=== PATIENT | female | born 1995 | race Asian ===

== ENCOUNTER 2016-11-15 10:27 | Emergency (ER) | payer OTHER ==
[2016-11-15 10:43] VITALS: BP 118/79; PULSE 85; TEMP 99.4; BMI 23.9
--- NOTE | 2016-11-15 10:55 | PDOC ---
History of Present Illness - General Chief Complaint: Pain, Acute Stated Complaint: SWELLING LEFT JAW Time Seen by Provider: 11/15/16 10:49 - History of Present Illness Initial Comments: 11/15/16 12:39 Complaint: Swelling of left face History of present illness: Patient with swelling of her parotid gland for several days. Mild pain, no redness or heat, no sore throat or respiratory tract symptoms. She was seen by her primary physician, and has been on Augmentin and ibuprofen, as well as massage. Review of systems: Denies fever/chills, headache, URI symptoms, sore throat, cough, chest pain, shortness of breath, abdominal pain, nausea, vomiting, diarrhea, urinary tract symptoms, vaginal bleeding or discharge. Remainder of systems reviewed and found to be negative Past medical history: Sickle cell disease, on transfusion therapy, last transfusion one week ago. Maintained on iron chealitors. 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 Social/family history reviewed and noncontributory. She was brought up in [facility] and received all normal childhood immunizations. Physical exam: Alert and oriented well-developed well-nourished no acute distress cheerful and cooperative Afebrile, vital signs normal HEENT: The conjunctivae, ears, and throat are clear. There is no congestion. There is moderate diffuse swelling of the left parotid. There is no palpable mass or stone. The stoma is not visible. There is no erythema, warmth, or other sign of infection Neck supple without bruit mass or nodes Chest clear. Breath sounds bilaterally no wheezes rales or rhonchi CV without murmur rub or gallop Abdomen benign Skin clear, no rash, adequate turgor and mucous membranes Impression: Parotitis, probably the result of a calculus and obstruction. Plan: Symptomatic treatment with ENT follow-up if no improvement 2-3 days. Recheck immediately if signs of infection develop. Continue present medication as prescribed by primary physician. Fully ambulatory, in no significant pain or other distress upon discharge to follow up with ENT as directed. Past History - Past Medical History Allergies/Adverse Reactions: Allergies Allergy/AdvReac Type Severity Reaction Status Date / Time ceftriaxone Allergy Verified 11/15/16 10:30 vancomycin Allergy Verified 11/15/16 10:30 Home Medications: Ambulatory Orders Folic Acid 1 mg PO DAILY 09/22/14 Montelukast Na [Singulair -] 10 mg PO HS 09/22/14 Penicillin V Potassium [Pen Vee K -] 250 mg PO BID 09/22/14 Amoxicillin/Potassium Clav [Augmentin 875-125 Tablet] 1 each PO BID 11/15/16 Ibuprofen [Motrin -] 600 mg PO TID 11/15/16 Anemia: Yes (SICKLE CELL) CVA: Yes (AT 9 YRS AGE) - Surgical History Abdominal Surgery: Yes (SPLEENECTOMY) - Psycho/Social/Smoking Cessation Hx Anxiety: No Suicidal Ideation: No Smoking History: Never smoked Have you smoked in the past 12 months: No Information on smoking cessation initiated: No Hx Alcohol Use: No Drug/Substance Use Hx: No Substance Use Type: None *Physical Exam - Vital Signs Last Vital Signs Temp Pulse Resp BP Pulse Ox 99.4 F 85 16 118/79 11/15/16 10:38 11/15/16 10:38 11/15/16 10:38 11/15/16 10:38 *DC/Admit/Observation/Transfer Diagnosis at time of Disposition: Parotid gland enlargement - Discharge Dispostion Disposition: HOME Condition at time of disposition: Stable Admit: No - Patient Instructions Printed Discharge Instructions: DI for Parotitis-Adult Additional Instructions: Warm compresses, gentle massage, medication as prescribed. Recheck immediately if there is redness, heat, or other sign of developing infection Try tart hard candy such as lemon drops to stimulate saliva secretion. See ENT specialist if there is no improvement in 3-5 days.
== END 2016-11-15 11:16 | disposition home or self-care (01) ==
LOC: FER 10:27
DX: K11.1 Hypertrophy of salivary gland (principal); D57.80 Other sickle-cell disorders without crisis; Z86.73 Personal history of transient ischemic attack (TIA), and cerebral infarction without residual deficits
CPT/HCPCS: 99281-25

== ENCOUNTER 2017-12-19 16:17 | Emergency (ER) | payer OTHER ==
[2017-12-19 16:35] VITALS: BMI 23.9
[2017-12-19] MEDS ORDERED: KETOROLAC TROMETHAMINE 15 MG/ML VIAL IVPUSH ONE (17:01)
[2017-12-19] MEDS ORDERED: SODIUM CHLORIDE 0.9% 1000 ML INFUS.BAG IV ONE (17:01)
--- NOTE | 2017-12-19 17:02 | PDOC ---
History of Present Illness - History of Present Illness Initial Comments: 12/19/17 17:42 Patient is a 22 F, with PMHx of sickle cell (transfusions every 6 weeks at [facility] last transfused Nov 15), acute chest syndrome (>10 years ago last episode ), who presents today for right rib pain. Patient states that that her rib pain began spontaneously while she was sitting at her desk at work. She describes her pain as sharp, localized to the right side of her breast and chest , waxing and waning of intensity (2-8 out of 10), worse upon inspiration and expiration, and states it sometimes radiates to her back. 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 She was flu-positive for 2 weeks last month (cough, cold, fever, runny nose) . She states she had an upper respiratory infection this past week (12/13-12/16) (no fever). She currently notes a productive cough with clear-green sputum. She denies recent travel, long flights or car rides. Social Hx: Social EtOH use. Denies tobacco use. <Nory Padilla - Last Filed: 12/19/17 17:55> <Shelly Julian - Last Filed: 12/19/17 18:51> - General Chief Complaint: Pain Stated Complaint: RIGHT RIB PAIN WITH RESPIRATION AND PALPATION Time Seen by Provider: 12/19/17 16:25 Past History <Nory Padilla - Last Filed: 12/19/17 17:55> - Past Medical History Anemia: Yes (SICKLE CELL) CVA: Yes (AT 9 YRS AGE) COPD: No - Surgical History Abdominal Surgery: Yes (SPLEENECTOMY) - Suicide/Smoking/Psychosocial Hx Smoking History: Never smoked Have you smoked in the past 12 months: No Information on smoking cessation initiated: No Hx Alcohol Use: Yes (SOCIAL) Drug/Substance Use Hx: No Substance Use Type: Alcohol <Shelly Julian - Last Filed: 12/19/17 18:51> - Past Medical History Allergies/Adverse Reactions: Allergies Allergy/AdvReac Type Severity Reaction Status Date / Time ceftriaxone Allergy Severe Difficulty Verified 12/19/17 16:19 Breathing vancomycin Allergy Severe Difficulty Verified 12/19/17 16:20 Breathing Home Medications: Ambulatory Orders Deferasirox [Jadenu] 720 mg PO DAILY 12/19/17 Review of Systems - Review of Systems Comments:: 12/19/17 17:43 GENERAL/CONSTITUTIONAL: No fever or chills. No weakness. HEAD, EYES, EARS, NOSE AND THROAT: No change in vision. No ear pain or discharge. No sore throat. GASTROINTESTINAL: No nausea, vomiting, diarrhea or constipation. GENITOURINARY: No dysuria, frequency, or change in urination. CARDIOVASCULAR: +right sided chest pain. No shortness of breath. RESPIRATORY: No cough, wheezing, or hemoptysis. MUSCULOSKELETAL: +right rib pain. No joint pain. No neck or back pain. SKIN: No rash NEUROLOGIC: No headache, vertigo, loss of consciousness, or change in strength/ sensation. ENDOCRINE: No increased thirst. No abnormal weight change. HEMATOLOGIC/LYMPHATIC: No anemia, easy bleeding, or history of blood clots. ALLERGIC/IMMUNOLOGIC: No hives or skin allergy. <Nory Padilla - Last Filed: 12/19/17 17:55> *Physical Exam - Vital Signs Last Vital Signs Temp Pulse Resp BP Pulse Ox 98.7 F 91 H 20 116/67 98 12/19/17 16:18 12/19/17 16:18 12/19/17 16:18 12/19/17 16:18 12/19/17 16:18 - Physical Exam Comments: 12/19/17 17:45 GENERAL: Awake, alert, and fully oriented, in no acute distress. Speaking in full sentences. Non-toxic appearing. HEAD: No signs of trauma EYES: PERRLA, EOMI, sclera anicteric, conjunctiva clear ENT: Auricles normal inspection, hearing grossly normal, nares patent, oropharynx clear without exudates. Moist mucosa NECK: Normal ROM, supple, no lymphadenopathy, JVD, or masses LUNGS: Breath sounds equal, clear to auscultation bilaterally. No wheezes, and no crackles HEART: Holo-systolic murmor. Regular rate and rhythm, normal S1 and S2, no rubs or gallops ABDOMEN: Port on the left side of chest. Soft, nontender, normoactive bowel sounds. No guarding, no rebound. No masses EXTREMITIES: Normal range of motion, no edema. No clubbing or cyanosis. No cords, erythema, or tenderness NEUROLOGICAL: Cranial nerves II through XII grossly intact. Normal speech, normal gait SKIN: Warm, Dry, normal turgor, no rashes or lesions noted. <Nory Padilla - Last Filed: 12/19/17 17:55> - Vital Signs Last Vital Signs Temp Pulse Resp BP Pulse Ox 98.7 F 91 H 20 116/67 98 12/19/17 16:18 12/19/17 16:18 12/19/17 16:18 12/19/17 16:18 12/19/17 16:18 <Shelly Julian - Last Filed: 12/19/17 18:51> Heart Score/ECG Review - ECG Intrepretation Comment:: 12/19/17 17:55 Sinus Rhythm 76 bpm Normal axis, normal interval T wave inversions v1 and 2 , no reciprocal changes. (holo-systolic murmor) <Nory Padilla - Last Filed: 12/19/17 17:55> ED Treatment Course - LABORATORY CBC & Chemistry Diagram: 12/19/17 17:15 12/19/17 17:18 - ADDITIONAL ORDERS Additional order review: Laboratory Results 12/19/17 17:18 Urine HCG, Qual Negative 12/19/17 17:15 RBC 2.70 L MCV 92.4 MCHC 33.7 RDW 18.5 H MPV 9.2 Neutrophils % No Result Required. Lymphocytes % No Result Required. - Medications Given in the ED: ED Medications Discontinued Medications Generic Name Dose Route Start Last Admin Trade Name Freq PRN Reason Stop Dose Admin Ketorolac Tromethamine 15 mg 12/19/17 17:01 12/19/17 17:20 Toradol Injection - IVPUSH 12/19/17 17:02 15 mg ONCE ONE Administration Sodium Chloride 1,000 ml 12/19/17 17:01 12/19/17 17:21 Normal Saline - IV 12/19/17 17:02 1,000 ml ONCE ONE Administration <Nory Padilla - Last Filed: 12/19/17 17:55> - LABORATORY CBC & Chemistry Diagram: 12/19/17 17:15 12/19/17 17:18 - RADIOLOGY Radiology Studies Ordered: Category Date Time Status CHEST PA & LAT [RAD] Stat Radiology 12/19/17 16:58 Ordered <Shelly Julian - Last Filed: 12/19/17 18:51> Medical Decision Making - Medical Decision Making 12/19/17 17:13 a/p: 22yo female with cough/cp -hx of sickle cell and acute chest syndrome -no fevers -does have cough -recent flu in November then another viral URI a few days ago -nontoxic appearing -will check labs, ekg, cxr -will monitor and reassess -pt has blood transfusion for anemia from [id number] - last transfusion Nov 15 12/19/17 18:06 pt states she typically gets transfused when hgb is 7 - transfused 2 units and hgb will remain between 8-9. elevated WBC 12/19/17 18:11 pt denies recent steroid use does not normally have an elevated WBC mother on the phone - updated on the clinical status pt denies pain at this time pending cxr 12/19/17 18:51 pt will be signed out to the oncoming ED physician pending cxr and re-eval <Shelly Julian - Last Filed: 12/19/17 18:51> *DC/Admit/Observation/Transfer - Attestations Scribe Attestion: 12/19/17 17:48 Documentation prepared by Nory Padilla, acting as medical imaging director for Shelly Julian DO. <Nory Padilla - Last Filed: 12/19/17 17:55> - Attestations Physician Attestion: 12/19/17 18:13 I, Dr. Shelly Julian DO, attest that this document has been prepared under my direction and personally reviewed by me in its entirety. I further attest, that it accurately reflects all work, treatment, procedures and medical decision -making performed by me. <Shelly Julian - Last Filed: 12/19/17 18:51> Diagnosis at time of Disposition: Chest pain, Leukocytosis - Discharge Dispostion Condition at time of disposition: Stable
[2017-12-19] MEDS ORDERED: KETOROLAC TROMETHAMINE 15 MG/ML VIAL ONE (17:20)
[2017-12-19 17:29] LABS: HEMOGLOBIN 8.4 GM/dl (10.7-15.3); MEAN PLT VOLUME 9.2 fl (7.5-11.1); RDW 18.5 % (11.6-15.6)
[2017-12-19 17:34] LABS: MCH 31.1 pg (25.7-33.7); MCHC 33.7 g/dl (32.0-36.0); MEAN CELL VOLUME 92.4 fl (80-96); PLATELET COUNT 355 K/MM3 (134-434); WHITE BLOOD COUNT 25.7 K/mm3 (4.0-10.8)
[2017-12-19 17:43] LABS: ALBUMIN 4.4 g/dl (3.5-5.0); ALK PHOS 43 U/L (32-92); ANION GAP 4 (8-16); BILIRUBIN,TOTAL 2.4 mg/dl (0.2-1.0); BLOOD UREA NITROGEN 14 mg/dl (7-18); CALCIUM 8.8 mg/dl (8.4-10.2); CHLORIDE 104 mmol/L (98-107); CO2 26 mmol/L (22-28); CREATININE 0.6 mg/dl (0.6-1.3); GLUCOSE,RANDOM 93 mg/dl (74-106); POTASSIUM 3.7 mmol/L (3.5-5.1); SGOT/AST 37 U/L (10-42); SGPT/ALT 31 U/L (10-40); SODIUM 134 mmol/L (136-145); TOT PROT 8.1 g/dl (6.4-8.3)
[2017-12-19 18:26] LABS: ANISOCYTOSIS 2+; MACROCYTOSIS 1+; SICKELED CELLS FEW
[2017-12-19 18:27] LABS: PLATELET ESTIMATE ADEQUATE; TARGET CELLS 1+
[2017-12-19] MEDS ORDERED: SODIUM CHLORIDE 1,000 ML IV STA (20:25)
[2017-12-19] MEDS ORDERED: ACETAMINOPHEN 1000 MG/100 ML VIAL (NON FORMULARY) IVPB ONE (20:25)
[2017-12-19] MEDS ORDERED: ACETAMINOPHEN INJECTION 100 ML IVPB ONE (20:28)
--- NOTE | 2017-12-19 23:43 | PDOC ---
*Physical Exam - Vital Signs Last Vital Signs Temp Pulse Resp BP Pulse Ox 98.7 F 91 H 20 116/67 98 12/19/17 16:18 12/19/17 16:18 12/19/17 16:18 12/19/17 16:18 12/19/17 16:18 - Physical Exam Comments: 12/19/17 23:39 "GENERAL: Awake, alert, and fully oriented, in no acute distress HEAD: No signs of trauma EYES: PERRLA, EOMI, sclera anicteric, conjunctiva clear ENT: Auricles normal inspection, hearing grossly normal, nares patent, oropharynx clear without exudates. Moist mucosa NECK: Nontender, no stepoffs, Normal ROM, supple, no lymphadenopathy, JVD, or masses LUNGS: Breath sounds equal, clear to auscultation bilaterally. No wheezes, and no crackles HEART: Regular rate and rhythm, normal S1 and S2, no murmurs, rubs or gallops ABDOMEN: Soft, nontender, normoactive bowel sounds. No guarding, no rebound. No masses EXTREMITIES: Normal range of motion, no edema. No clubbing or cyanosis. No cords, erythema, or tenderness NEUROLOGICAL: Cranial nerves II through XII intact. 5/5 strength and sensation in all extremities, Normal speech, normal gait SKIN: Warm, Dry, normal turgor, no rashes or lesions noted. " ED Treatment Course - LABORATORY CBC & Chemistry Diagram: 12/19/17 17:15 12/19/17 17:18 - ADDITIONAL ORDERS Additional order review: Laboratory Results 12/19/17 12/19/17 17:18 17:18 Sodium 134 L Potassium 3.7 Chloride 104 Carbon Dioxide 26 Anion Gap 4 L BUN 14 Creatinine 0.6 Creat Clearance w eGFR > 60 Random Glucose 93 Calcium 8.8 Total Bilirubin 2.4 H AST 37 ALT 31 Alkaline Phosphatase 43 Total Protein 8.1 Albumin 4.4 Urine HCG, Qual Negative 12/19/17 17:15 RBC 2.70 L MCV 92.4 MCHC 33.7 RDW 18.5 H MPV 9.2 Neutrophils % No Result Required. Lymphocytes % No Result Required. - RADIOLOGY Radiology Studies Ordered: Category Date Time Status CHEST CTA [CT] Stat CT Scan 12/19/17 20:25 Completed - Medications Given in the ED: ED Medications Discontinued Medications Generic Name Dose Route Start Last Admin Trade Name Freq PRN Reason Stop Dose Admin Acetaminophen 1,000 mg 12/19/17 20:25 12/19/17 20:35 Ofirmev Injection - IVPB 12/19/17 20:26 1,000 mg ONCE ONE Administration Sodium Chloride 1,000 mls @ 1,000 mls/hr 12/19/17 20:25 12/19/17 20:36 Normal Saline - IV 12/19/17 21:24 1,000 mls/hr ASDIR STA Administration Ketorolac Tromethamine 15 mg 12/19/17 17:01 12/19/17 17:20 Toradol Injection - IVPUSH 12/19/17 17:02 15 mg ONCE ONE Administration Sodium Chloride 1,000 ml 12/19/17 17:01 12/19/17 17:21 Normal Saline - IV 12/19/17 17:02 1,000 ml ONCE ONE Administration Medical Decision Making - Medical Decision Making 12/19/17 23:39 Signout taken at 7PM. 22 F with SCD presenting with pleuritic chest pain and cough. - Labs notable for leukocytosis, no fevers noted - CXR clear Given pt's symptoms, CTA of chest was obtained and returned negative for PE. However, study was limited due to machine malfunction during study. Pt reassessed - states she feels well now with no chest pain after receiving toradol and tylenol. Exam unremarkable at this time. Vitals stable. Clinically stable for DC. I discussed the physical exam findings, ancillary test results and final diagnoses with the patient. I answered all of the patient's questions. The patient was satisfied with the care received and felt comfortable with the discharge plan and treatment plan. The patient agrees to follow up with the primary care physician within 24-72 hours. *DC/Admit/Observation/Transfer Diagnosis at time of Disposition: Chest pain, Leukocytosis - Discharge Dispostion Disposition: HOME Condition at time of disposition: Stable - Referrals - Patient Instructions Printed Discharge Instructions: DI for Atypical Chest Pain Additional Instructions: Your CT scan did not show a blood clot today. Your chest X-ray did not show any signs of pneumonia or acute chest syndrome. However, if you continue to feel ill, have worsening chest pain or shortness of breath, fevers, or any other concerning symptoms, return to the ER immediately. Your white blood cells were very elevated today. You need to have your bloodwork re-checked by your primary care doctor within 1 week to make sure it returns to normal. - Post Discharge Activity - Attestations Physician Attestion: 12/19/17 23:42 I, Dr. Yao Dorado MD, attest that this document has been prepared under my direction and personally reviewed by me in its entirety. I further attest, that it accurately reflects all work, treatment, procedures and medical decision -making performed by me.
[2017-12-19 23:51] VITALS: BP 105/63; PULSE 87; TEMP 99.3
--- NOTE | 2017-12-21 10:53 | EKG ---
Test Reason : Blood Pressure : / mmHG Vent. Rate : 076 BPM Atrial Rate : 076 BPM P-R Int : 154 ms QRS Dur : 074 ms QT Int : 394 ms P-R-T Axes : 038 062 041 degrees QTc Int : 443 ms NORMAL SINUS RHYTHM NORMAL ECG NO PREVIOUS ECGS AVAILABLE Confirmed by JIN GUZMAN MD ([id number]) on 12/21/2017 10:52:50 AM Referred By: DR ARAGON Confirmed By:JIN GUZMAN MD
== END 2017-12-19 23:50 | disposition home or self-care (01) ==
LOC: FER 16:17
PROC: 3E033NZ Introduction of Analgesics, Hypnotics, Sedatives into Peripheral Vein, Percutaneous Approach (ICD-10-PCS; principal; 2017-12-19)
PROC: 3E0333Z Introduction of Anti-inflammatory into Peripheral Vein, Percutaneous Approach (ICD-10-PCS; 2017-12-19)
PROC: 3E0337Z Introduction of Electrolytic and Water Balance Substance into Peripheral Vein, Percutaneous Approach (ICD-10-PCS; 2017-12-19)
DX: D72.829 Elevated white blood cell count, unspecified (principal); R07.89 Other chest pain; D57.1 Sickle-cell disease without crisis
CPT/HCPCS: 36415; 71046-TC-FY; 71275-TC; 80053; 84703; 85025; 85044; 93005; 99283-25

== ENCOUNTER 2017-12-21 02:49 | Observation (INO) | payer OTHER ==
[2017-12-21 02:54] VITALS: BMI 23.9
--- NOTE | 2017-12-21 03:02 | PDOC ---
History of Present Illness - General Chief Complaint: Chest Pain Stated Complaint: CHEST PAIN Time Seen by Provider: 12/21/17 03:02 History Source: Patient, Legal Guardian(s) Exam Limitations: No Limitations - History of Present Illness Initial Comments: 12/21/17 04:01 22F PMHx SSA (1 episode acute chest as a toddler, undergoes PRBC transfusion q6 months, hx aplastic anemia) with cc of fever, chest pain and SOB. Was seen and discharged from this ER yesterday where she was seen for cough, URI sxs - found to have leukocytosis but was afebrile, underwent CT chest with contrast which was negative for PE. After going home, chest pain and SOB worsened, called her mother very tachypneic and thus brought pt back to ER. +cough, no abd pain, no dysuria, no pain in joints. Reports positive flu test in November, was ill for a few days and sxs resolved. Does report flu like sxs over past 3-5 days. Past History - Past Medical History Allergies/Adverse Reactions: Allergies Allergy/AdvReac Type Severity Reaction Status Date / Time ceftriaxone Allergy Severe Difficulty Verified 12/19/17 16:19 Breathing vancomycin Allergy Severe Difficulty Verified 12/19/17 16:20 Breathing Home Medications: Ambulatory Orders Deferasirox [Jadenu] 720 mg PO DAILY 12/19/17 Anemia: Yes (SICKLE CELL) CVA: Yes (AT 9 YRS AGE) COPD: No - Surgical History Abdominal Surgery: Yes (SPLEENECTOMY) - Suicide/Smoking/Psychosocial Hx Smoking History: Unknown if ever smoked Have you smoked in the past 12 months: No Number of Cigarettes Smoked Daily: 0 Information on smoking cessation initiated: No Hx Alcohol Use: No Drug/Substance Use Hx: No Substance Use Type: None Review of Systems - Review of Systems Is the patient limited [place] proficient: No Constitutional: Yes: Chills, Fever Respiratory: Yes: Cough Cardiac (ROS): Yes: Chest Pain. No: Edema, Irregular Heart Rate, Lightheadedness, Palpitations ABD/GI: No: Abdominal Distended, Nausea, Vomiting : No: Burning, Dysuria Musculoskeletal: No: Back Pain, Muscle Pain Neurological: No: Headache, Numbness, Paresthesia, Weakness *Physical Exam - Vital Signs Last Vital Signs Temp Pulse Resp BP Pulse Ox 102.3 F H 114 H 15 127/73 95 12/21/17 02:51 12/21/17 02:51 12/21/17 02:51 12/21/17 02:51 12/21/17 02:51 - Physical Exam General Appearance: Yes: Nourished, Appropriately Dressed HEENT: positive: Normal ENT Inspection, Symmetrical, Nasal Congestion Neck: negative: Tender, Trachea midline Respiratory/Chest: positive: Lungs Clear, Normal Breath Sounds, Rapid RR. negative: Respiratory Distress, Accessory Muscle Use, Crackles, Rales, Rhonchi, Stridor, Wheezing Cardiovascular: positive: Regular Rhythm, Regular Rate, S1, S2, Systolic Murmur. negative: Edema, Irregularly Irregular, Irregular Gastrointestinal/Abdominal: positive: Normal Bowel Sounds, Soft. negative: Tender, Increased Bowel Sounds, Decreased BS, Distended, Guarding, Rebound, Tenderness Lymphatic: negative: Tenderness Musculoskeletal: positive: Normal Inspection. negative: CVA Tenderness Integumentary: positive: Dry, Warm Neurologic: negative: sanitation technician II-XII NML intact, Fully Oriented, Alert, Normal Mood/ Affect, Normal Response, Motor Strength 03/10 ED Treatment Course - LABORATORY CBC & Chemistry Diagram: 12/21/17 03:15 12/21/17 03:15 Medical Decision Making - Medical Decision Making 12/21/17 04:14 Pt with sickle cell anemia presenting with fever, tachycardia, SOB, chest pain. Ddx includes pna, acute chest syndrome, influenza. - labs including bld cx, lactate - CXR - UA - toradol, IVF - reassess, likely admission 12/21/17 05:34 Labs, CXR reviewed. Laboratory Tests 12/19/17 12/21/17 17:15 03:15 WBC 25.7 H 20.7 H Hgb 8.4 L 6.8 L* Hct 25.0 L 20.3 L Hct has dropped from 25 to 20.3 over past 32hrs. Pt denies vaginal bleeding, dark stools. Likely a result of hemolytic crisis. Still unclear what source of fever is, flu swab is pending. Will admit for PRBC transfusion, symptomatic anemia and to further workup fever of unknown origin. 12/21/17 06:07 Discussed case with SELVIN Villa. Will admit for blood transfusion, workup of fever. 12/21/17 06:15 Mother, Shweta Houston - [phone] *DC/Admit/Observation/Transfer Diagnosis at time of Disposition: Symptomatic anemia, Fever - Discharge Dispostion Condition at time of disposition: Fair Admit: Yes - Referrals - Patient Instructions - Post Discharge Activity
[2017-12-21] MEDS ORDERED: KETOROLAC TROMETHAMINE 30 MG/1 ML VIAL IVPUSH ONE (03:05)
[2017-12-21] MEDS ORDERED: SODIUM CHLORIDE 1,000 ML IV STA (03:05)
[2017-12-21] MEDS ORDERED: KETOROLAC TROMETHAMINE 30 MG/1 ML VIAL ONE (03:53)
[2017-12-21 04:26] LABS: BASO % 0.3 % (0-2.0); EOS % 0.5 % (0-4.5); HEMATOCRIT 20.3 % (32.4-45.2); LYMPH % 6.6 % (8-40); MCHC 33.4 g/dl (32.0-36.0); MEAN PLT VOLUME 9.9 fl (7.5-11.1); MONO % 15.8 % (3.8-10.2); NEUT % 76.8 % (42.8-82.8); PLATELET COUNT 311 K/MM3 (134-434); RBC 2.18 M/mm3 (3.60-5.2); RDW 19.7 % (11.6-15.6); WHITE BLOOD COUNT 20.7 K/mm3 (4.0-10.0)
[2017-12-21 04:28] LABS: VENOUS PC02 45.7 mmHg (38-52); VENOUS PH 7.38 (7.32-7.42); VENOUS PO2 22.2 mmHg (28-48)
[2017-12-21 04:29] LABS: HEMOGLOBIN 6.8 GM/dL (10.7-15.3)
[2017-12-21 04:53] LABS: N-TERMINAL BNP 235.98 pg/ml (5-125)
[2017-12-21 04:55] LABS: ALBUMIN 4.1 g/dl (3.4-5.0); ALK PHOS 50 U/L (45-117); ANION GAP 6 (8-16); BILIRUBIN,TOTAL 2.4 mg/dL (0.2-1.0); BLOOD UREA NITROGEN 9 mg/dL (7-18); CALCIUM 8.1 mg/dL (8.5-10.1); CHLORIDE 108 mmol/L (98-107); CO2 26 mmol/L (21-32); CREATININE 0.7 mg/dL (0.55-1.02); GLUCOSE,RANDOM 84 mg/dL (74-106); SGOT/AST 39 U/L (15-37); SGPT/ALT 45 U/L (12-78); SODIUM 140 mmol/L (136-145); TOT PROT 7.8 g/dl (6.4-8.2)
[2017-12-21] MEDS: SODIUM CHLORIDE 1,000 ML IV SCH (07:10)
--- NOTE | 2017-12-21 08:29 | HP ---
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 Patient receives blood transfusion every 3 months at [facility], her last transfusion was 11/15/17. patient is currently being followed by director of partnerships, Dr Carvajal at [facility]. Patient reports recently being diagnosed with the flu on 11/18/17, she completed a five day course of tamiflu. Patient reports the fever and bodyaches resolved, however , she reports ongoing cough for the past month. Yesterday, 12/20/17, she developed dyspnea upon exertion with chest pain and sought evaluation in the emergency department, patient was afebrile at the time and was discharged from the emergency department. However, upon returning home she developed worsening of chest pain with dyspnea upon exertion and fever and returned to the emergency department for further managment. ER course was notable for: (1) wbc 20.07 hgb 6.8 (2) oral temp 102.3 (3)cta of chest: no obvious pulmonary embolism. 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) Smoking: none Alcohol:social Drugs: none Family History: mother: breast cancer survivor father: sickle cell trait alive and well brother: alive and well no medical history Allergies ceftriaxone Allergy (Severe, Verified 12/19/17 16:19) Difficulty Breathing vancomycin Allergy (Severe, Verified 12/19/17 16:20) Difficulty Breathing HOME MEDICATIONS: Home Medications Medication Instructions Recorded Deferasirox [Jadenu] 720 mg PO DAILY 12/19/17 REVIEW OF SYSTEMS CONSTITUTIONAL: Present: fever, Absent: chills, diaphoresis, generalized weakness, malaise, loss of appetite, weight change HEENT: Absent: rhinorrhea, nasal congestion, throat pain, throat swelling, difficulty swallowing, mouth swelling, ear pain, eye pain, visual changes CARDIOVASCULAR: Present: chest pain Absent: syncope, palpitations, irregular heart rate, lightheadedness, peripheral edema RESPIRATORY: Absent: cough, shortness of breath, dyspnea with exertion, orthopnea, wheezing, stridor, hemoptysis GASTROINTESTINAL: Absent: abdominal pain, abdominal distension, nausea, vomiting, diarrhea, constipation, melena, hematochezia GENITOURINARY: Absent: dysuria, frequency, urgency, hesitancy, hematuria, flank pain, genital pain MUSCULOSKELETAL: Absent: myalgia, arthralgia, joint swelling, back pain, neck pain SKIN: Absent: rash, itching, pallor HEMATOLOGIC/IMMUNOLOGIC: Absent: easy bleeding, easy bruising, lymphadenopathy, frequent infections ENDOCRINE: Absent: unexplained weight gain, unexplained weight loss, heat intolerance, cold intolerance NEUROLOGIC: Absent: headache, focal weakness or paresthesias, dizziness, unsteady gait, seizure, mental status changes, bladder or bowel incontinence PSYCHIATRIC: Absent: anxiety, depression, suicidal or homicidal ideation, hallucinations. PHYSICAL EXAMINATION Vital Signs - 24 hr 12/21/17 12/21/17 12/21/17 02:51 03:24 05:55 Temperature 102.3 F H 99.1 F Pulse Rate 114 H 114 H Pulse Rate [ 89 Right Radial] Respiratory 15 15 Rate Blood Pressure 127/73 Blood Pressure 99/51 [Right Arm] O2 Sat by Pulse 95 95 96 Oximetry (%) GENERAL: Awake, alert, and fully oriented, in no acute distress. HEAD: Normal with no signs of trauma. EYES: Pupils equal, round and reactive to light, extraocular movements intact, sclera anicteric, conjunctiva clear. No lid lag. EARS, NOSE, THROAT: Ears normal, nares patent, oropharynx clear without exudates. Moist mucous membranes. NECK: Normal range of motion, supple without lymphadenopathy, JVD, or masses. LUNGS: Breath sounds equal, clear to auscultation bilaterally. No wheezes, and no crackles. No accessory muscle use. HEART: Regular rate and rhythm, normal S1 and S2, 2/6 systolic ejection murmur, rub or gallop. ABDOMEN: Soft, nontender, not distended, normoactive bowel sounds, no guarding, no rebound, no masses. No hepatomegaly or splenomegaly. MUSCULOSKELETAL: Normal range of motion at all joints. No bony deformities or tenderness. No CVA tenderness. UPPER EXTREMITIES: 2+ pulses, warm, well-perfused. No cyanosis. No clubbing. No peripheral edema. LOWER EXTREMITIES: 2+ pulses, warm, well-perfused. No calf tenderness. No peripheral edema. NEUROLOGICAL: Cranial nerves II-XII intact. Normal speech. Normal gait. PSYCHIATRIC: Cooperative. Good eye contact. Appropriate mood and affect. SKIN: Warm, dry, normal turgor, no rashes or lesions noted, normal capillary refill. Laboratory Results - last 24 hr 12/21/17 12/21/17 12/21/17 03:15 03:15 03:15 WBC 20.7 H RBC 2.18 L Hgb 6.8 L* Hct 20.3 L MCV 93.0 MCH 31.0 MCHC 33.4 RDW 19.7 H Plt Count 311 MPV 9.9 Neutrophils % 76.8 Lymphocytes % 6.6 L Monocytes % 15.8 H Eosinophils % 0.5 Basophils % 0.3 Retic Count VBG pH 7.38 POC VBG pCO2 45.7 POC VBG pO2 22.2 L Mixed VBG HCO3 26.4 H Sodium 140 Potassium 4.0 Chloride 108 H Carbon Dioxide 26 Anion Gap 6 L BUN 9 Creatinine 0.7 Creat Clearance w eGFR > 60 Random Glucose 84 Lactic Acid Calcium 8.1 L Total Bilirubin 2.4 H AST 39 H ALT 45 Alkaline Phosphatase 50 Creatine Kinase Troponin I B-Natriuretic Peptide Total Protein 7.8 Albumin 4.1 Beta HCG, Quant Urine HCG, Qual Anti-A Titer Blood Type Antibody Screen Antigen Identification Crossmatch 12/21/17 12/21/17 12/21/17 03:15 03:15 03:15 WBC RBC Hgb Hct MCV MCH MCHC RDW Plt Count MPV Neutrophils % Lymphocytes % Monocytes % Eosinophils % Basophils % Retic Count VBG pH POC VBG pCO2 POC VBG pO2 Mixed VBG HCO3 Sodium Potassium Chloride Carbon Dioxide Anion Gap BUN Creatinine Creat Clearance w eGFR Random Glucose Lactic Acid 0.9 Calcium Total Bilirubin AST ALT Alkaline Phosphatase Creatine Kinase Troponin I Cancelled B-Natriuretic Peptide 235.98 H Total Protein Albumin Beta HCG, Quant < 1.0 Urine HCG, Qual Anti-A Titer Blood Type Antibody Screen Antigen Identification Crossmatch 12/21/17 12/21/17 12/21/17 03:15 03:15 03:27 WBC RBC Hgb Hct MCV MCH MCHC RDW Plt Count MPV Neutrophils % Lymphocytes % Monocytes % Eosinophils % Basophils % Retic Count VBG pH POC VBG pCO2 POC VBG pO2 Mixed VBG HCO3 Sodium Potassium Chloride Carbon Dioxide Anion Gap BUN Creatinine Creat Clearance w eGFR Random Glucose Lactic Acid Calcium Total Bilirubin AST ALT Alkaline Phosphatase Creatine Kinase Cancelled 72 Troponin I < 0.02 B-Natriuretic Peptide Total Protein Albumin Beta HCG, Quant Urine HCG, Qual Negative Anti-A Titer Blood Type Antibody Screen Antigen Identification Crossmatch 12/21/17 12/21/17 12/21/17 04:46 05:30 05:30 WBC RBC Hgb Hct MCV MCH MCHC RDW Plt Count MPV Neutrophils % Lymphocytes % Monocytes % Eosinophils % Basophils % Retic Count 6.23 H VBG pH POC VBG pCO2 POC VBG pO2 Mixed VBG HCO3 Sodium Potassium Chloride Carbon Dioxide Anion Gap BUN Creatinine Creat Clearance w eGFR Random Glucose Lactic Acid Calcium Total Bilirubin AST ALT Alkaline Phosphatase Creatine Kinase Troponin I B-Natriuretic Peptide Total Protein Albumin Beta HCG, Quant Urine HCG, Qual Anti-A Titer Cancelled Blood Type A POSITIVE Cancelled Antibody Screen Negative Cancelled Antigen Identification Crossmatch See Detail 12/21/17 12/21/17 12/21/17 05:30 08:13 08:13 WBC RBC Hgb Hct MCV MCH MCHC RDW Plt Count MPV Neutrophils % Lymphocytes % Monocytes % Eosinophils % Basophils % Retic Count VBG pH POC VBG pCO2 POC VBG pO2 Mixed VBG HCO3 Sodium Potassium Chloride Carbon Dioxide Anion Gap BUN Creatinine Creat Clearance w eGFR Random Glucose Lactic Acid Calcium Total Bilirubin AST ALT Alkaline Phosphatase Creatine Kinase Troponin I B-Natriuretic Peptide Total Protein Albumin Beta HCG, Quant Urine HCG, Qual Anti-A Titer Blood Type A POSITIVE Antibody Screen Antigen Identification C Antigen - NEGATIVE K Antigen - NEGATIVE Crossmatch 12/21/17 12/21/17 08:13 08:19 WBC RBC Hgb Hct MCV MCH MCHC RDW Plt Count MPV Neutrophils % Lymphocytes % Monocytes % Eosinophils % Basophils % Retic Count VBG pH POC VBG pCO2 POC VBG pO2 Mixed VBG HCO3 Sodium Potassium Chloride Carbon Dioxide Anion Gap BUN Creatinine Creat Clearance w eGFR Random Glucose Lactic Acid Calcium Total Bilirubin AST ALT Alkaline Phosphatase Creatine Kinase Troponin I B-Natriuretic Peptide Total Protein Albumin Beta HCG, Quant Urine HCG, Qual Anti-A Titer Blood Type Antibody Screen Antigen Identification E Antigen - NEGATIVE c Antigen - POSITIVE Crossmatch ASSESSMENT/PLAN: f/e/n - regular diet - replete lytes prn ppx - no chemical AC due to severe anemia, mechanical ac only - scd - oob Problem List - Problem (1) Sickle cell crisis Assessment/Plan: - continue ivf, supplemental O2 and prn pain medication - will contact patient's private director of partnerships, Dr [facility]al at [facility] - appreciate hematology input Code(s): D57.00 - HB-SS DISEASE WITH CRISIS, UNSPECIFIED (2) Fever Assessment/Plan: - pending urine and blood cultures - monitor wbc and fever curve - start empiric levaquin Code(s): R50.9 - FEVER, UNSPECIFIED (3) Symptomatic anemia Assessment/Plan: - hgb 6.8 baseline 8.4 as per mother, last transfusion was 11/15/17, patient received 2 units of prbc, pending 2 units of prbc today - repeat hgb at 1800 Code(s): D64.9 - ANEMIA, UNSPECIFIED Visit type - Emergency Visit Emergency Visit: Yes Care time: The patient presented to the Emergency Department on the above date and was hospitalized for further evaluation of their emergent condition. - New Patient This patient is new to me today: Yes Date on this admission: 12/21/17 - Critical Care Critical Care patient: No
[2017-12-21] MEDS ORDERED: ACETAMINOPHEN 1000 MG/100 ML VIAL (NON FORMULARY) IVPB ONE (08:45)
[2017-12-21 08:59] LABS: URINE APPEARANCE Clear; URINE BILIRUBIN Negative (NEGATIVE); URINE BLOOD Negative (NEGATIVE); URINE GLUCOSE (UA) Negative (NEGATIVE); URINE KETONE Negative (NEGATIVE); URINE LEUK ESTERASE Negative (NEGATIVE); URINE NITRITE Negative (NEGATIVE); URINE PROTEIN Negative (NEGATIVE)
[2017-12-21 09:02] LABS: URINE COLOR YELLOW
[2017-12-21] MEDS ORDERED: ACETAMINOPHEN INJECTION 100 ML IVPB ONE (09:27)
[2017-12-21] MEDS ORDERED: diphenhydrAMINE HCL 25 MG CAPSULE (FP) PO ONE ×2 (09:35→09:38)
--- NOTE | 2017-12-21 10:59 | EKG ---
Test Reason : Blood Pressure : / mmHG Vent. Rate : 077 BPM Atrial Rate : 077 BPM P-R Int : 162 ms QRS Dur : 072 ms QT Int : 372 ms P-R-T Axes : 031 058 046 degrees QTc Int : 420 ms NORMAL SINUS RHYTHM NORMAL ECG WHEN COMPARED WITH ECG OF 19-DEC-2017 17:35, NO SIGNIFICANT CHANGE WAS FOUND Confirmed by JIN GUZMAN MD ([id number]) on 12/21/2017 10:59:10 AM Referred By: MD ADORNO Confirmed By:JIN GUZMAN MD
[2017-12-21 11:14] LABS: ACTIVATED PTT 35.8 SECONDS (26.9-34.4); INR 1.27 (0.82-1.09); PROTHROMBIN TIME (PATIENT) 14.3 SEC (9.98-11.88)
[2017-12-21] MEDS: ACETAMINOPHEN 325 MG TABLET (FP) PO PRN ×2 (16:12→21:14)
[2017-12-21 23:27] LABS: HEMATOCRIT 26.2 % (32.4-45.2); MCH 31.5 pg (25.7-33.7); MCHC 34.4 g/dl (32.0-36.0); MEAN CELL VOLUME 91.7 fl (80-96); MEAN PLT VOLUME 9.6 fl (7.5-11.1); PLATELET COUNT 329 K/MM3 (134-434); RBC 2.86 M/mm3 (3.60-5.2); RDW 18.8 % (11.6-15.6); WHITE BLOOD COUNT 26.2 K/mm3 (4.0-10.8)
[2017-12-21 23:41] LABS: PLATELET ESTIMATE ADEQUATE
[2017-12-22] MEDS: ACETAMINOPHEN 325 MG TABLET (FP) PO PRN ×3 (02:25→22:23)
[2017-12-22] MEDS ORDERED: IBUPROFEN 600 MG TABLET (FP) PO ONE (03:35)
--- NOTE | 2017-12-22 03:38 | HOSP ---
Subjective - Review of Symptoms Events since last encounter: pt c/o right sided pleuritic chest pain. Mother very concerned that pain is worsening despite transfusion. Pt reports that it hurts when she takes a deep breath and therefore has not been doing same. Physical Examination Vital Signs: Vital Signs Temperature 100.8 F H 12/22/17 02:07 Pulse Rate 95 H 12/22/17 02:07 Respiratory Rate 18 12/22/17 02:07 Blood Pressure 126/67 12/22/17 02:07 O2 Sat by Pulse Oximetry (%) 97 12/21/17 20:00 Constitutional: Yes: Calm Cardiovascular: Yes: Regular Rate and Rhythm, S1 Respiratory: Yes: CTA Bilaterally, Other (poor inspiratory effort) Gastrointestinal: Yes: Normal Bowel Sounds, Soft Musculoskeletal: Yes: Other (pain on palpation right chest 3rd, 4th intercostal space area near sternal border. No pain on palpation of port area.) Labs: CBC, BMP 12/21/17 23:00 12/21/17 03:15 Hospitalist Encounter Assessment: chest pain likely costochondritis - ibuprofen 600mg - encouraged to deep breathe, given incentive spirometer, advised to use 20 times per hour while awake. - consider CT chest or xray in am - will discuss with primary SECTION PLOTTER OPERATOR in am.
[2017-12-22] MEDS: SODIUM CHLORIDE 1,000 ML IV SCH (08:01)
--- NOTE | 2017-12-22 08:27 | PN ---
Physical Exam: SUBJECTIVE: Patient seen and examined, reports substernal pain upon palpation, denies any shortness of breath. OBJECTIVE:Patient is a 22 y/o female with a past medical history of sickle cell disease and cva ( @ 9y/o). patient was admitted from the emergency department for emergent condition. Vital Signs Period Temp Pulse Resp BP Sys/Valerio Pulse Ox Last 24 Hr 98.4 F-100.8 F 79-95 17-18 97-126/54-69 95-99 GENERAL: The patient is awake, alert, and fully oriented, in no acute distress. HEAD: Normal with no signs of trauma. EYES: PERRL, extraocular movements intact, sclera anicteric, conjunctiva clear. No ptosis. ENT: Ears normal, nares patent, oropharynx clear without exudates, moist mucous membranes. NECK: Trachea midline, full range of motion, supple. LUNGS: Breath sounds equal, clear to auscultation bilaterally, no wheezes, no crackles, no accessory muscle use. HEART: Regular rate and rhythm, S1, S2, 2/6 systolic injection murmur, no rub or gallop. ABDOMEN: Soft, nontender, nondistended, normoactive bowel sounds, no guarding, no rebound, no hepatosplenomegaly, no masses. EXTREMITIES: 2+ pulses, warm, well-perfused, no edema. NEUROLOGICAL: Cranial nerves II through XII grossly intact. Normal speech, gait not observed. PSYCH: Normal mood, normal affect. SKIN: multiple tattoos, right port a cath, no induration, no erythema noted, no sq emphysema, Warm, dry, normal turgor, no rashes or lesions noted Laboratory Results - last 24 hr 12/21/17 12/21/17 12/21/17 05:30 05:30 08:48 WBC RBC Hgb Hct MCV MCH MCHC RDW Plt Count MPV Neutrophils % Neutrophils % (Manual) Band Neutrophils % Lymphocytes % Lymphocytes % (Manual) Monocytes % (Manual) Platelet Estimate PT with INR 14.30 H INR 1.27 H PTT (Actin FS) 35.8 H Urine Color Yellow Urine Appearance Clear Urine pH 6.0 Ur Specific [place] 1.015 Urine Protein Negative Urine Glucose (UA) Negative Urine Ketones Negative Urine Blood Negative Urine Nitrite Negative Urine Bilirubin Negative Urine Urobilinogen 1.0 Ur Leukocyte Esterase Negative Blood Type A POSITIVE Antibody Screen Negative Crossmatch See Detail 12/21/17 23:00 WBC 26.2 H RBC 2.86 L Hgb 9.0 L Hct 26.2 L MCV 91.7 MCH 31.5 MCHC 34.4 RDW 18.8 H Plt Count 329 MPV 9.6 Neutrophils % No Result Required. Neutrophils % (Manual) 79.0 Band Neutrophils % 3.0 Lymphocytes % No Result Required. Lymphocytes % (Manual) 5.0 L Monocytes % (Manual) 10 Platelet Estimate Adequate PT with INR INR PTT (Actin FS) Urine Color Urine Appearance Urine pH Ur Specific [place] Urine Protein Urine Glucose (UA) Urine Ketones Urine Blood Urine Nitrite Urine Bilirubin Urine Urobilinogen Ur Leukocyte Esterase Blood Type Antibody Screen Crossmatch Active Medications Generic Name Dose Route Start Last Admin Trade Name Freq PRN Reason Stop Dose Admin Acetaminophen 650 mg 12/21/17 13:00 12/22/17 02:25 Tylenol - PO 650 mg Q4H PRN Administration FEVER Sodium Chloride 1,000 mls @ 83 mls/hr 12/21/17 06:15 12/22/17 08:01 Normal Saline - IV Not Given ASDIR NA Levofloxacin 500 mg in 100 mls @ 100 mls/hr 12/21/17 10:00 12/21/17 15:05 Levaquin 500 Mg Premixed Ivpb - IVPB 100 mls/hr DAILY NA Administration Microbiology 12/21/17 03:37 Blood - Peripheral Venous Blood Culture - Preliminary NO GROWTH OBTAINED AFTER 24 HOURS, INCUBATION TO CONTINUE FOR 4 DAYS. 12/21/17 03:37 Blood - Peripheral Venous Blood Culture - Preliminary NO GROWTH OBTAINED AFTER 24 HOURS, INCUBATION TO CONTINUE FOR 4 DAYS. 12/21/17 03:15 Nasopharyngeal Swab Influenza Types A,B Antigen (JAZ) - Preliminary 12/21/17 03:15 Nasopharyngeal Swab - Preliminary ASSESSMENT/PLAN: 1) heme/onc sickle cell crisis - continue ivf - pt reports adequate pain control with motrin and toradol, continue - appreciate hematology input - call placed to patient's private paramedic instructor, Dr Carvajal at [facility] , called Dr Carvajal is on vacation, case discussed with SELVIN Godfrey, made aware and agrees with treatment plan symptomatic anemia - repeat hgb 9.0 after 2 units of prbc, awaiting am labs 2) ID sepsis of unknown origin -peripheral blood cultures NTD, pending culture from port a cath and urine - awaiting am lab, low grade temp noted - continue levaquin - appreciate ID input 3) cardiovascular chest pain - point tenderness upon palpation, pain worsened to chest upon sitting upward and leaning forward, pending esr and crp - troponin x 1 wnl, pending 2nd and 3rd f/e/n - regular diet - replete lytes prn ppx - no chemical AC due to severe anemia, mechanical ac only - scd - oob dispo: pt requires observation admission mother at bedside, all questions answered, aggress with plan Problem List - Problems (1) Sickle cell crisis Code(s): D57.00 - HB-SS DISEASE WITH CRISIS, UNSPECIFIED (2) Fever Code(s): R50.9 - FEVER, UNSPECIFIED (3) Symptomatic anemia Code(s): D64.9 - ANEMIA, UNSPECIFIED Visit type - Emergency Visit Emergency Visit: Yes ED Registration Date: 12/21/17 Care time: The patient presented to the Emergency Department on the above date and was hospitalized for further evaluation of their emergent condition. - New Patient This patient is new to me today: No - Critical Care Critical Care patient: No - Discharge Referral Referred to [facility] No
[2017-12-22] MEDS ORDERED: KETOROLAC TROMETHAMINE 30 MG/1 ML VIAL IVPUSH PRN (08:30)
[2017-12-22] MEDS: FAMOTIDINE 20 MG TABLET PO SCH ×3 (09:28→21:32)
--- NOTE | 2017-12-22 10:05 | PN ---
Progress Note (short form) - Note Progress Note: ID Consult dictated 22 year old female PMH sickle cell disease, s/p splenectomy, admitted with dyspnea, pleuritic R chest pain. CTA negative for PE or pneumonia. Febrile with elevated WBC ? Acute chest syndrome R/O sepsis Hx major ceftriaxone allergy Await sepsis workup Empiric levaquin
[2017-12-22 10:16] LABS: ALBUMIN 3.7 g/dl (3.5-5.0); ALK PHOS 37 U/L (32-92); ANION GAP 4 (8-16); BILIRUBIN,TOTAL 2.4 mg/dl (0.2-1.0); BLOOD UREA NITROGEN 9 mg/dl (7-18); CALCIUM 8.6 mg/dl (8.4-10.2); CHLORIDE 107 mmol/L (98-107); CO2 25 mmol/L (22-28); CREATININE < 0.8 mg/dl (0.6-1.3); GLUCOSE,RANDOM 110 mg/dl (74-106); MAGNESIUM 1.8 mg/dL (1.8-2.4); PHOSPHOROUS 4.1 mg/dl (2.5-4.6); POTASSIUM 3.7 mmol/L (3.5-5.1); SGOT/AST 33 U/L (10-42); SGPT/ALT 34 U/L (10-40); SODIUM 136 mmol/L (136-145); TOT PROT 7.1 g/dl (6.4-8.3)
[2017-12-22 10:46] LABS: HEMATOCRIT 25.7 % (32.4-45.2); HEMOGLOBIN 8.9 GM/dl (10.7-15.3); MCH 31.4 pg (25.7-33.7); MCHC 34.4 g/dl (32.0-36.0); MEAN CELL VOLUME 91.2 fl (80-96); MEAN PLT VOLUME 9.5 fl (7.5-11.1); PLATELET COUNT 334 K/MM3 (134-434); RBC 2.82 M/mm3 (3.60-5.2); RDW 18.1 % (11.6-15.6); WHITE BLOOD COUNT 21.4 K/mm3 (4.0-10.8)
--- NOTE | 2017-12-22 11:46 | CONS ---
INFECTIOUS DISEASE CONSULTATION DATE OF CONSULTATION: DATE OF DICTATION: 12/22/2017 REASON FOR CONSULTATION: The patient is a 20-year-old female with a longstanding history of sickle cell anemia, evaluated for fever and leukocytosis. HISTORY OF PRESENT ILLNESS: Patient states she had developed flu-like symptoms last week; for which, she was evaluated and prescribed Tamiflu. She developed severe, right-sided chest pain on Tuesday, December 19, 2017, prompting her to go to the emergency room. She complained of diffuse, right-sided chest pain which was exacerbated by deep inspiration and movement. At that time, a CT angiogram was performed and was negative for pulmonary embolism or pneumonia. She was discharged home. She returned to the emergency room on December 21, with worsening right-sided chest pain, shortness of breath. She was noted to be febrile to 102.3 and have a markedly elevated white blood cell count. She was empirically treated with Levaquin. Patient reports occasional cough, scant sputum production. No hemoptysis. She denies any shaking chills. No complaints of vomiting or diarrhea, dysuria, or hematuria. Patient has a longstanding history of sickle cell anemia. She had a splenectomy at a young age and a stroke at age 9. She receives prophylactic transfusion of packed cells every 6 weeks at [facility]. Last blood transfusion was in November. She also has a port in the right chest, which has been functioning well without signs or symptoms of infection. 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 PAST MEDICAL HISTORY: Positive for sickle cell anemia; history of acute chest syndrome at a young age, no recurrent acute chest syndrome or painful crises since that time; history of aplastic anemia; CVA age 9. PAST SURGICAL HISTORY: Status post splenectomy and port placement. ALLERGIES: CEFTRIAXONE and VANCOMYCIN. Patient develops labored breathing and throat swelling with CEFTRIAXONE, pruritus with VANCOMYCIN. MEDICATIONS: Deferasirox. SOCIAL HISTORY: She attends school and is in contact with preschoolers. Nonsmoker. Occasional EtOH. No history of illicit drug use. SYSTEMS REVIEW: Neurologic: Prior history of stroke. No loss of consciousness, seizure activity, or focal weakness. Cardiac: Negative chest pain and palpitations. Respiratory: As per HPI. Gastrointestinal: Negative vomiting or diarrhea. Genitourinary: Negative for urinary tract infection. LABORATORY DATA: White count 26.2; neutrophils 79, bands 3, lymphocytes 5, monocytes 10; hematocrit 26.2; platelet count 329; reticulocyte count 6.2. Urine: Leukocyte esterase negative. Urine test negative. BUN 9, creatinine 0.7. Total bilirubin 2.4, alkaline phosphatase 50, AST 39. Doppler exam negative for DVT. PHYSICAL EXAMINATION: General: She is awake and alert. She is in no acute distress, not acutely toxic appearing. Breathing is non-labored. Vital Signs: Temperature 99.1, T-max 100.8; blood pressure 100/59; pulse 78, regular; respirations 18 per minute. HEENT: Sclerae are anicteric. Oropharynx negative. Neck: Supple. No palpable nodes. Port Site: No erythema or tenderness. Heart: Sounds S1, S2. Lungs: Clear bilaterally. No rhonchi, rales, or wheezing. Abdomen: Soft. No tenderness elicited. No mass, rebound, or rigidity. Extremities: Negative for edema. Negative Homans sign. IMPRESSION: A 22-year-old female with past medical history of sickle cell disease, status post splenectomy, admitted with shortness of breath; pleuritic, right-sided chest pain; CAT scan negative for pulmonary embolism or pneumonia. 1. Probable acute chest syndrome. 2. Fever, leukocytosis; rule out sepsis. 3. History of major CEFTRIAXONE allergy. RECOMMENDATIONS: Await sepsis workup, empiric antibiotic coverage with Levaquin, IV fluid hydration, hematology evaluation. Will follow. Thank you for the kind referral. CASSIUS MCCORD M.D. [facility]/[id number]
--- NOTE | 2017-12-22 12:29 | EKG ---
Test Reason : Blood Pressure : / mmHG Vent. Rate : 075 BPM Atrial Rate : 075 BPM P-R Int : 162 ms QRS Dur : 082 ms QT Int : 394 ms P-R-T Axes : 027 061 038 degrees QTc Int : 439 ms NORMAL SINUS RHYTHM NORMAL ECG WHEN COMPARED WITH ECG OF 21-DEC-2017 07:21, NO SIGNIFICANT CHANGE WAS FOUND Confirmed by JIN GUZMAN MD ([id number]) on 12/22/2017 12:28:42 PM Referred By: MD BUCIO Confirmed By:JIN GUZMAN MD
[2017-12-22] MEDS ORDERED: MAGNESIUM SULFATE 2 GM in SODIUM CHLORIDE 100 ML IVPB ONE (12:39)
[2017-12-22] MEDS ORDERED: MAGNESIUM SULFATE IN WATER 2 GM/50 ML IVPB IVPB ONE (13:00)
[2017-12-22] MEDS: IBUPROFEN 600 MG TABLET (FP) PO PRN ×2 (13:17→21:29)
[2017-12-22 14:15] LABS: PLATELET ESTIMATE ADEQUATE
--- NOTE | 2017-12-22 21:31 | CONSULT ---
Consult Consult Specialty:: heme Referred by:: malick read Reason for Consultation:: ssd - History of Present Illness Chief Complaint: cp History of Present Illness: 22 yof w SSC foll'd by Dr Carvjaal - [place] adm w inspiratory CP developing 4d ago. Prior to that had viral sxs and was recently treated for flu w tamiflu. She was eval'd in ED and CT performed which did not show infiltrate or PE. 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 Ages 3-5 marked by multiple episodes of ACS. At 9 yo, she sustained a cva, despite use of hydrea on study. 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) ...: No Heme/Onc: Yes: Sickle Cell Disease - Past Surgical History Past Surgical History: Yes: Splenectomy - Alcohol/Substance Use Hx Alcohol Use: No - Smoking History Smoking history: Unknown if ever smoked Have you smoked in the past 12 months: No Aproximately how many cigarettes per day: 0 Home Medications - Allergies Allergies/Adverse Reactions: Allergies Allergy/AdvReac Type Severity Reaction Status Date / Time ceftriaxone Allergy Severe Difficulty Verified 12/19/17 16:19 Breathing vancomycin Allergy Severe Difficulty Verified 12/19/17 16:20 Breathing - Home Medications Home Medications: Ambulatory Orders Deferasirox [Jadenu] 720 mg PO DAILY 12/19/17 Physical Exam Vital Signs: Vital Signs Temperature 99.2 F 12/22/17 14:37 Pulse Rate 87 12/22/17 14:37 Respiratory Rate 20 12/22/17 14:37 Blood Pressure 111/54 12/22/17 14:37 O2 Sat by Pulse Oximetry (%) 97 12/22/17 06:01 Constitutional: Yes: No Distress, Calm Eyes: Yes: Sclera Icterus Neck: Yes: WNL, Supple Cardiovascular: Yes: Regular Rate and Rhythm (mild R upper cost-vert tender) Respiratory: Yes: CTA Bilaterally Gastrointestinal: Yes: Normal Bowel Sounds, Soft Extremities: Yes: WNL Edema: No Integumentary: Yes: WNL Labs: CBC, BMP 12/22/17 08:55 12/22/17 08:55 Assessment/Plan SCD w new pleuritic CP, fever, leukocytosis non-hypoxic and no radiographic infilt which is reassuring for no current acs she may have new onset rib voc/infarct possib assoc w fever would f/u cxs and cont abx per ID send Hb EP would cont NSAID, incentive spirometry, ivf for now monitor cbc s/p transfusion monitor O2 sat
[2017-12-23] MEDS: SODIUM CHLORIDE 1,000 ML IV SCH (06:44)
--- NOTE | 2017-12-23 09:29 | PN ---
Progress Note, Physician History of Present Illness: Awake, alert Seated in bed eating breakfast with her mother. C/O episodic R chest pain- improved No c/o fever/ chills Low grade fever 100.8 WBC 21.4 Blood c/s no growth - Current Medication List Current Medications: Active Medications Acetaminophen (Tylenol -) 650 mg PO Q4H PRN PRN Reason: FEVER Last Admin: 12/22/17 22:23 Dose: 650 mg Famotidine (Pepcid -) 20 mg PO BID [facility] Last Admin: 12/22/17 21:32 Dose: 20 mg Sodium Chloride (Normal Saline -) 1,000 mls @ 83 mls/hr IV ASDIR [facility] Last Admin: 12/23/17 06:44 Dose: 83 mls/hr Levofloxacin (Levaquin 500 Mg Premixed Ivpb -) 500 mg in 100 mls @ 100 mls/hr IVPB DAILY [facility] Last Admin: 12/22/17 09:28 Dose: 100 mls/hr Ibuprofen (Motrin -) 600 mg PO Q8H PRN PRN Reason: PAIN LEVEL 1-3 Last Admin: 12/22/17 21:29 Dose: 600 mg Ketorolac Tromethamine (Toradol Injection -) 30 mg IVPUSH Q8H-IV PRN PRN Reason: PAIN LEVEL 4 - 6 Stop: 12/27/17 09:59 - Objective Vital Signs: Vital Signs Temperature 98.4 F 12/23/17 06:52 Pulse Rate 68 12/23/17 06:52 Respiratory Rate 18 12/23/17 06:52 Blood Pressure 97/60 12/23/17 06:52 O2 Sat by Pulse Oximetry (%) 97 12/22/17 06:01 Constitutional: Yes: No Distress Eyes: Yes: Conjunctiva Clear Cardiovascular: Yes: Regular Rate and Rhythm, S1, S2 Respiratory: Yes: CTA Bilaterally Gastrointestinal: Yes: Normal Bowel Sounds, Soft. No: Tenderness Edema: No Wound/Incision: Yes: Other (port site no erythema/ tenderness) Labs: CBC, BMP 12/22/17 08:55 12/22/17 08:55 INR, PTT INR 1.27 (0.82-1.09) H 12/21/17 05:30 Assessment/Plan Probable acute chest syndrome/ VOC Fever/ leukocytosis Hx major cephalosporin allergy Sepsis workup thusfar negative Continue empiric levaquin IV--> po
[2017-12-23] MEDS: FAMOTIDINE 20 MG TABLET PO SCH ×2 (09:54→22:50)
--- NOTE | 2017-12-23 11:29 | PN ---
Physical Exam: SUBJECTIVE: Patient seen and examined pt reports Right sided chest pain improved, very mild pain now with movement, c /o productive cough with yellow sputum, denies sob, palpitations, abdominal pain , N/V/D or urinary symptoms. OBJECTIVE: Vital Signs Period Temp Pulse Resp BP Sys/Valerio Pulse Ox Last 24 Hr 98.4 F-100.0 F 68-96 18-20 97-121/54-75 GENERAL: The patient is awake, alert, and fully oriented, in no acute distress. HEAD: Normal with no signs of trauma. EYES: PERRL, extraocular movements intact, sclera anicteric, conjunctiva clear. No ptosis. ENT: Ears normal, nares patent, oropharynx clear without exudates, moist mucous membranes. NECK: Trachea midline, full range of motion, supple. LUNGS: Breath sounds equal, clear to auscultation bilaterally, no wheezes, no crackles, no accessory muscle use. HEART: Regular rate and rhythm, S1, S2 without murmur, rub or gallop. ABDOMEN: Soft, nontender, nondistended, normoactive bowel sounds, no guarding, no rebound, no hepatosplenomegaly, no masses. EXTREMITIES: 2+ pulses, warm, well-perfused, no edema. NEUROLOGICAL: Cranial nerves II through XII grossly intact. Normal speech, gait not observed. PSYCH: Normal mood, normal affect. SKIN: Warm, dry, normal turgor, no rashes or lesions noted Laboratory Results - last 24 hr 12/22/17 12/22/17 12/22/17 08:55 08:55 08:55 Neutrophils % (Manual) 77.0 Band Neutrophils % 1.0 Lymphocytes % (Manual) 11.0 Monocytes % (Manual) 10 Eosinophils % (Manual) 1.0 Platelet Estimate Adequate ESR 72 H C-Reactive Protein 11.6 H Active Medications Generic Name Dose Route Start Last Admin Trade Name Freq PRN Reason Stop Dose Admin Acetaminophen 650 mg 12/21/17 13:00 12/22/17 22:23 Tylenol - PO 650 mg Q4H PRN Administration FEVER Famotidine 20 mg 12/22/17 10:00 12/23/17 09:54 Pepcid - PO 20 mg BID NA Administration Sodium Chloride 1,000 mls @ 83 mls/hr 12/21/17 06:15 12/23/17 06:44 Normal Saline - IV 83 mls/hr ASDIR NA Administration Levofloxacin 500 mg in 100 mls @ 100 mls/hr 12/21/17 10:00 12/23/17 09:53 Levaquin 500 Mg Premixed Ivpb - IVPB 100 mls/hr DAILY NA Administration Ibuprofen 600 mg 12/22/17 12:24 12/22/17 21:29 Motrin - PO 600 mg Q8H PRN Administration PAIN LEVEL 1-3 Ketorolac Tromethamine 30 mg 12/22/17 08:30 Toradol Injection - IVPUSH 12/27/17 09:59 Q8H-IV PRN PAIN LEVEL 4 - 6 Microbiology 12/21/17 03:37 Blood - Peripheral Venous Blood Culture - Preliminary NO GROWTH OBTAINED AFTER 48 HOURS, INCUBATION TO CONTINUE FOR 3 DAYS. 12/21/17 03:37 Blood - Peripheral Venous Blood Culture - Preliminary NO GROWTH OBTAINED AFTER 48 HOURS, INCUBATION TO CONTINUE FOR 3 DAYS. 12/22/17 02:15 Blood - Joanne Cath Blood Culture - Preliminary NO GROWTH OBTAINED AFTER 24 HOURS, INCUBATION TO CONTINUE FOR 4 DAYS. 12/21/17 08:48 Urine - Urine Clean Catch Urine Culture - Final 12/21/17 03:15 Nasopharyngeal Swab Influenza Types A,B Antigen (JAZ) - Preliminary 12/21/17 03:15 Nasopharyngeal Swab - Preliminary ASSESSMENT/PLAN: The patient is a 22 y/o female with a past medical history of sickle cell disease, transfusion dependent, cva at 9 years of age and recent Influenza, who presented to ER with worsening of chest pain with dyspnea upon exertion and fever. 1) heme/onc *sickle cell crisis - continue ivf - pt reports adequate pain control with motrin and toradol, continue - appreciate hematology input - s/p 2 units of blood - Rpt H/H stable 2) ID sepsis of unknown origin -BC peripheral and from port - preliminary negative - urine culture neg -low grade fever overnight - ID following - will cont abx - cxr- NAD - WBC slowly trending down 3) cardiovascular *chest pain- likely pleuritic pain - abnormal ESR/ CRP - CTA negative for PE - CxR- No - point tenderness upon palpation, pain worsened to chest upon sitting upward and leaning forward, pending esr and crp - troponin neg * Reports generalized rash - which resolved now - will monitor f/e/n - regular diet - replete lytes prn ppx - no chemical AC due to severe anemia, mechanical ac only - scd - oob Dispo: pt requires observation admission Updated plan of care with pt mother at bedside Visit type - Emergency Visit Emergency Visit: Yes ED Registration Date: 12/21/17 Care time: The patient presented to the Emergency Department on the above date and was hospitalized for further evaluation of their emergent condition. - New Patient This patient is new to me today: Yes Date on this admission: 12/23/17 - Critical Care Critical Care patient: No
[2017-12-23] MEDS: ACETAMINOPHEN 325 MG TABLET (FP) PO PRN (19:43)
[2017-12-24] MEDS: SODIUM CHLORIDE 1,000 ML IV SCH (06:35)
[2017-12-24 08:31] LABS: HEMATOCRIT 24.2 % (32.4-45.2); HEMOGLOBIN 8.3 GM/dl (10.7-15.3); MCH 31.7 pg (25.7-33.7); MCHC 34.4 g/dl (32.0-36.0); MEAN PLT VOLUME 9.5 fl (7.5-11.1); PLATELET COUNT 388 K/MM3 (134-434); RBC 2.63 M/mm3 (3.60-5.2); RDW 16.6 % (11.6-15.6); WHITE BLOOD COUNT 18.8 K/mm3 (4.0-10.8)
[2017-12-24] MEDS: FAMOTIDINE 20 MG TABLET PO SCH (09:50)
--- NOTE | 2017-12-24 12:14 | PN ---
Physical Exam: SUBJECTIVE: Patient seen and examined while in bed with mother present. Pt states she feels better. Still has right side pleuric chest pain but improved since being in admission. OBJECTIVE: Vital Signs Period Temp Pulse Resp BP Sys/Valerio Pulse Ox Last 24 Hr 98.4 F-100.8 F 79-90 17-18 102-121/53-64 96-100 GENERAL: The patient is awake, alert, and fully oriented, in no acute distress. LUNGS: Breath sounds equal, clear to auscultation bilaterally, no wheezes, no crackles, no accessory muscle use. C/O right side pleuric type pain Incentive spirometer up to 750 only HEART: Regular rate and rhythm, S1, S2 without murmur, rub or gallop. ABDOMEN: Soft, nontender, nondistended, normoactive bowel sounds, no guarding, no rebound, no hepatosplenomegaly, no masses. EXTREMITIES: 2+ pulses, warm, well-perfused, no edema. NEUROLOGICAL: Cranial nerves II through XII grossly intact. Normal speech, gait not observed. PSYCH: Normal mood, normal affect. SKIN: Warm, dry, normal turgor, no rashes or lesions noted Laboratory Results - last 24 hr 12/21/17 12/24/17 05:30 07:00 WBC 18.8 H RBC 2.63 L Hgb 8.3 L Hct 24.2 L MCV 92.0 MCH 31.7 MCHC 34.4 RDW 16.6 H Plt Count 388 MPV 9.5 Blood Type A POSITIVE Antibody Screen Negative Crossmatch See Detail Active Medications Generic Name Dose Route Start Last Admin Trade Name Freq PRN Reason Stop Dose Admin Acetaminophen 650 mg 12/21/17 13:00 12/23/17 19:43 Tylenol - PO 650 mg Q4H PRN Administration FEVER Famotidine 20 mg 12/22/17 10:00 12/24/17 09:50 Pepcid - PO Not Given BID NA Sodium Chloride 1,000 mls @ 83 mls/hr 12/21/17 06:15 12/24/17 06:35 Normal Saline - IV Not Given ASDIR NA Ibuprofen 600 mg 12/22/17 12:24 12/22/17 21:29 Motrin - PO 600 mg Q8H PRN Administration PAIN LEVEL 1-3 Ketorolac Tromethamine 30 mg 12/22/17 08:30 Toradol Injection - IVPUSH 12/27/17 09:59 Q8H-IV PRN PAIN LEVEL 4 - 6 ASSESSMENT/PLAN: The patient is a 22 y/o female with a past medical history of sickle cell disease, transfusion dependent, cva at 9 years of age and recent Influenza, who presented to ER with worsening of chest pain with dyspnea upon exertion and fever. Currently fever trending down, feeling much better and wants to go home. 1) heme/onc *sickle cell crisis - Pt refused IVF overnight and no IV line placed. - pt reports adequate pain control with motrin and tylenol, continue - appreciate hematology input - s/p 2 units of blood and cbc stable 2) ID sepsis of unknown origin -BC peripheral and from port - preliminary negative - urine culture neg -low grade fever overnight continues nightly - ID following - was on levaquin but after 3 doses + rash, so stopped and ID aware, feels levaquin may not be needed as cx neg - cxr- NAD - WBC slowly trending down 18.8 3) cardiovascular *chest pain- likely pleuritic pain - CTA negative for PE - CxR- No - point tenderness upon palpation, pain worsened to chest upon sitting upward and leaning forward, pending esr and crp - troponin neg * Reports generalized rash - which resolved now - will monitor - offering benadryl f/e/n - regular diet - replete lytes prn ppx - no chemical AC due to severe anemia, mechanical ac only - scd - oob Dispo: At this time pt is recovering well, she appears well, states she feels better, no ABT on with trending down WBC but continues with a low grade fever. Mom is present, scheduled for meeting her hemo/onc doctor in [facility] this week. Accepted to have a new IV inserted and one bag of bolus saline before a scheduled discharge today. Mom is in full agreement. Visit type - Emergency Visit Emergency Visit: Yes ED Registration Date: 12/21/17 Care time: The patient presented to the Emergency Department on the above date and was hospitalized for further evaluation of their emergent condition. - New Patient This patient is new to me today: Yes Date on this admission: 12/24/17 - Critical Care Critical Care patient: No - Discharge Referral Referred to [facility] Med [facility] No
[2017-12-24] MEDS ORDERED: SODIUM CHLORIDE 0.9% 1000 ML INFUS.BAG IV ONE (12:25)
[2017-12-24 14:44] VITALS: BP 97/57; PULSE 86; TEMP 98.3
[2017-12-28 00:11] LABS: HGB SOLUBILITY Positive (Negative); Hgb A 68.5 % (96.4-98.8); Hgb C 0 % (0.0); Hgb F 0 % (0.0-2.0); Hgb S 28.6 % (0.0)
== END 2017-12-24 14:30 | disposition home or self-care (01) ==
LOC: FER 02:49 → INTOOBSV 12:51 → FM/S 12:51 → UNDOADMOB 12:51 → FM/S 14:01
PROVIDERS: ADMIT Emergency Medicine; ATTEND Nurse Practitioner Family
PROC: 30233N1 Transfusion of Nonautologous Red Blood Cells into Peripheral Vein, Percutaneous Approach (ICD-10-PCS; principal; 2017-12-21)
PROC: 3E03329 Introduction of Other Anti-infective into Peripheral Vein, Percutaneous Approach (ICD-10-PCS; 2017-12-21)
PROC: 3E033NZ Introduction of Analgesics, Hypnotics, Sedatives into Peripheral Vein, Percutaneous Approach (ICD-10-PCS; 2017-12-21)
PROC: 3E033GC Introduction of Other Therapeutic Substance into Peripheral Vein, Percutaneous Approach (ICD-10-PCS; 2017-12-21)
PROC: 3E0337Z Introduction of Electrolytic and Water Balance Substance into Peripheral Vein, Percutaneous Approach (ICD-10-PCS; 2017-12-21)
DX: D57.00 Hb-SS disease with crisis, unspecified (principal); D64.89 Other specified anemias; R50.81 Fever presenting with conditions classified elsewhere; R07.9 Chest pain, unspecified; A41.9 Sepsis, unspecified organism; D72.829 Elevated white blood cell count, unspecified; R21 Rash and other nonspecific skin eruption
CPT/HCPCS: 36415; 36430; 71046-TC-FY; 80053; 81003; 82550; 82803; 83021; 83605; 83735; 83880; 84100; 84484; 84702; 84703; 85025; 85027; 85044; 85610; 85651; 85660; 85730; 86140; 86850; 86900; 86901; 86902; 86922; 87040; 87076; 87086; 87804; 93005; 93970-TC; 96361; 96365; 96375; 99285-25; G0378; P9038; P9058